=== PATIENT | female | born 1970 | race Caucasian/White ===

== ENCOUNTER 2016-06-19 12:59 | Emergency (ER) | payer MEDICAID ==
[~2016-06-19] VITALS: Ht 149.9 cm; Wt 104.6 kg
[~2016-06-19 12:59] MED LIST: FLUC150T17 PO; GLIP10TA95 PO; LISI20TA PO; METF500T PO
[2016-06-19 13:20] VITALS: Ht 149.9 cm; Wt 104.6 kg
[2016-06-19] MEDS ORDERED: SOD CHLORIDE 0.9% 1,000 ML IV STA (16:57)
[2016-06-19] MEDS ORDERED: KETOROLAC 30 MG INJ IV STA (16:57)
[2016-06-19 17:25] LABS: ADD SCAN DIFF NO
[2016-06-19 17:27] LABS: BASOPHILS % 0.3 % (0.0-2.0); EOSINOPHILS # 0.1 10^3/ul (0.0-0.5); EOSINOPHILS % 1.1 % (0.0-7.0); HEMATOCRIT 42.8 % (37.0-47.0); LYMPHOCYTES # 4.1 10^3/ul (0.8-2.9); LYMPHOCYTES % 34.3 % (15.0-51.0); MEAN CORPUSCULAR HEMOGLOBIN 28.1 pg (29.0-33.0); MEAN CORPUSCULAR HGB CONC 32.7 g/dl (32.0-37.0); MEAN CORPUSCULAR VOLUME 85.9 fl (82.0-101.0); MEAN PLATELET VOLUME 10.9 fl (7.4-10.4); MONOCYTE # 0.7 10^3/ul (0.3-0.9); MONOCYTES % 5.7 % (0.0-11.0); NEUTROPHIL # 6.9 10^3/ul (1.6-7.5); NEUTROPHILS % 58.3 % (39.0-77.0); PLATELET COUNT 287 10^3/UL (140-415); RED BLOOD COUNT 4.98 10^6/ul (4.20-5.40); RED CELL DISTRIBUTION WIDTH 13.6 % (11.5-14.5); WHITE BLOOD COUNT 11.8 10^3/ul (4.8-10.8)
[2016-06-19 17:30] LABS: ADD UMIC YES; URINE BILIRUBIN (Dip) NEGATIVE (NEGATIVE); URINE BLOOD (Dip) NEGATIVE (NEGATIVE); URINE COLOR YELLOW (YELLOW); URINE KETONES (Dip) NEGATIVE (NEGATIVE); URINE LEUKOCYTE ESTERASE (Dip) NEGATIVE (NEGATIVE); URINE NITRITE (Dip) NEGATIVE (NEGATIVE); URINE TOTAL PROTEIN (Dip) 1+ (NEGATIVE); URINE UROBILINOGEN (Dip) 0.2 E.U./dL (0.1-1.0)
[2016-06-19 17:36] LABS: ALBUMIN 4.1 g/dl (3.3-4.9)
[2016-06-19 17:37] LABS: POTASSIUM 4.1 mmol/L (3.5-5.1)
[2016-06-19 17:39] LABS: BILIRUBIN,INDIRECT 0.1 mg/dl (0-1.1); BILIRUBIN,TOTAL 0.1 mg/dl (0.2-1.3); CREATININE 0.44 mg/dl (0.44-1.00)
[2016-06-19 17:40] LABS: ALBUMIN/GLOBULIN RATIO 1.1; CALCIUM 9.5 mg/dl (8.4-10.2); TOTAL PROTEIN 7.8 g/dl (6.1-8.1)
[2016-06-19 17:45] LABS: BACTERIA,URINE MANY; SQUAMOUS EPITHELIAL CELL,UR MANY; URINE RBCS NONE SEEN /HPF (0)
[2016-06-19] MEDS ORDERED: SOD CHLORIDE 0.9% 100 ML ONE (18:08)
[2016-06-19] MEDS ORDERED: IOHEXOL 300MG/ML 150 ML BTL ONE (18:08)
--- NOTE | 2016-06-19 19:26 | RADRPT ---
PROCEDURE: CT Abdomen and Pelvis with contrast. CLINICAL INDICATION: Abdomen and pelvis pain. TECHNIQUE: CT scan of the abdomen and pelvis with contrast was performed. The patient was scanned following the uncomplicated intravenous administration of 100 cc of Omnipaque-300. Coronal and sag ittal reformatted images were obtained from the axial source images. Images were reviewed on a high- resolution PACS workstation. Total exam DLP is 952.19 mGy-cm. CTDIvol is 16.62 mGy. One or more o f the following dose reduction techniques were used: Automated exposure control, adjustment of the m A and/or kV according to patient size, use of iterative reconstruction technique. COMPARISON: 05/24/2008. FINDINGS: The lung bases are normal. There is no pleural effusion. The liver is mildly enlarged and diffusely decreased attenuation consistent with fatty metamorphosis . There is no focal hepatic lesion. The gallbladder is surgically absent with clips noted in the gallbladder bed. The bile ducts are no rmal. The spleen is normal in size. There is no focal splenic lesion. Both adrenals are normal with no enlargement or mass. The pancreas is unremarkable with no mass or evidence of pancreatitis. Both kidneys demonstrate normal contrast enhancement. There is no renal mass or hydronephrosis. The abdominal aorta is not dilated. There is no retroperitoneal lymphadenopathy or mass. There is no pelvic lymphadenopathy or mass. The bladder and distal ureters are normal. The appendix is well seen and appears normal. The bowel is unremarkable. There is a midline abdominal wall hernia superior to the umbilicus conta ining only omental fat. There is no herniated bowel. There is no free fluid or free gas. There are degenerative changes of the spine. There is no fracture or lytic lesion. There is flowin g ossification along the anterolateral aspect of 6 contiguous lower thoracic vertebral bodies, with preservation of disk height consistent with diffuse idiopathic skeletal hyperostosis (DISH). IMPRESSION: 1. Mild hepatomegaly. 2. Fatty metamorphosis of the liver. 3. Status post cholecystectomy. 4. Normal appendix. 5. Midline anterior abdominal wall hernia superior to the pelvis containing only omental fat with n o herniated bowel. 6. Degenerative changes of the spine. 7. Diffuse idiopathic skeletal hyperostosis. 8. Otherwise unremarkable study. RPTAT: QQ .Mina Sky MD, MD Date Time Electronically viewed and signed by .Mina Sky MD, on 06/19/2016 19:26 .R/
[2016-06-19] MEDS ORDERED: IBUP-1542 PO (19:44)
[2016-06-19] MEDS ORDERED: HYDR-906 PO (19:44)
--- NOTE | 2016-06-19 19:53 | ERD ---
ER Documentation Chief Complaint Date/Time DATE: 06/19/16 TIME: 19:49 Chief Complaint Back pain x 3 days, no injury reported. HPI This is a 45-year-old female presents to the ER with lower back pain for the last 3 days. Back pain is located in the left side and radiates down her left leg. He states that pain is constant rate as 8 out of 10. Patient denies any numbness or tingling in her left leg. She denies any trauma. She denies any urinary frequency or dysuria. She denies hematuria. Patient denies any abdominal pain. Denies any fevers or chills. She denies any urine or bowel incontinence. She denies any saddle like anesthesia ROS All systems reviewed and are negative except as per history of present illness. Medications Home Meds Active Scripts Hydrocodone/Acetaminophen ([place] 5-325 Tablet) 1 Each Tablet, 1 TAB PO Q6H Y for PAIN, #7 TAB Prov:[place] 06/19/16 Ibuprofen* (Motrin*) 600 Mg Tab, 600 MG PO Q6, #30 TAB Prov:[place] 06/19/16 Fluconazole* (Diflucan*) 150 Mg Tablet, 150 MG PO ONCE, #1 TAB take in 3 days if your symptoms of yeast infection have not improved Prov:ALEXANDRIA TAYLOR PA-C 12/19/15 Reported Medications Lisinopril* (Prinivil*) 20 Mg Tablet, 20 MG PO DAILY 03/30/13 Metformin Hcl (Glucophage) 500 Mg Tablet, 1000 MG PO BID 03/30/13 Glipizide* (Glucotrol*) 10 Mg Tablet, 10 MG PO DAILY 03/30/13 Allergies Allergies: Coded Allergies: No Known Allergy (Verified Allergy, Mild, 05/23/08) PMhx/Soc History of Surgery: Yes (YVONNE, CX, RIGHT ARMPIT CYST REMOVAL X2) Anesthesia Reaction: No Hx Neurological Disorder: No Hx Respiratory Disorders: No Hx Cardiac Disorders: No Hx Psychiatric Problems: No Hx Miscellaneous Medical Probl: Yes (DM AND HTN. ) Hx Alcohol Use: No Hx Substance Use: No Hx Tobacco Use: No Smoking Status: Never smoker Physical Exam Vitals Vital Signs Date Time Temp Pulse Resp B/P Pulse Ox O2 Delivery O2 Flow Rate FiO2 06/19/16 13:20 97.7 72 18 161/76 100 Physical Exam GENERAL: The patient is well developed and appropriate for usual state of health , in no apparent distress. CHEST: Clear to auscultation bilaterally. There are no rales, wheezes or rhonchi. HEART: Regular rate and rhythm. No murmurs, clicks, rubs or gallops. ABDOMEN: Soft, nontender and nondistended. No rebound or guarding. No gross peritonitis. No gross organomegaly or masses. No Funez sign or McBurney point tenderness. No pulsatile abdominal mass. BACK: No midline or flank tenderness. TTP paraspinal muscles. Negative leg raise test. No step- offs. EXTREMITIES: Full range of motion. Grossly neurovascularly intact. NEURO: Alert and oriented. Result Diagram: 06/19/16 1718 06/19/16 1718 Results 24 hrs Laboratory Tests Test 06/19/16 17:15 06/19/16 17:18 Urine Bacteria MANY Urine Bilirubin NEGATIVE Urine Clarity CLOUDY Urine Color YELLOW Urine Glucose 0.5%% Urine Hemoglobin NEGATIVE Urine Ketones NEGATIVE Urine Leukocyte Esterase NEGATIVE Urine Microscopic RBC NONE SEEN/HPF Urine Microscopic WBC NONE SEEN/HPF Urine Nitrite NEGATIVE Urine Specific [place]ck[place] 1.025 Urine Squamous Epithelial Cells MANY Urine Total Protein 1+ Urine Urobilinogen 0.2 E.U./dL Urine pH 6.0 Alanine Aminotransferase (ALT/SGPT) 25IU/L Albumin 4.1g/dl Albumin/Globulin Ratio 1.10 Alkaline Phosphatase 98IU/L Anion Gap 15 Aspartate Amino Transf (AST/SGOT) 16IU/L Basophils # 0.010^3/ul Basophils % 0.3% Blood Urea Nitrogen 10mg/dl Calcium Level 9.5mg/dl Carbon Dioxide Level 31mmol/L Chloride Level 96mmol/L Creatinine 0.44mg/dl Direct Bilirubin 0.00mg/dl Eosinophils # 0.110^3/ul Eosinophils % 1.1% Globulin 3.70g/dl Glucose Level 221mg/dl Hematocrit 42.8% Hemoglobin 14.0g/dl Indirect Bilirubin 0.1mg/dl Lipase 53U/L Lymphocytes # 4.110^3/ul Lymphocytes % 34.3% Mean Corpuscular Hemoglobin 28.1pg Mean Corpuscular Hemoglobin Concent 32.7g/dl Mean Corpuscular Volume 85.9fl Mean Platelet Volume 10.9fl Monocytes # 0.710^3/ul Monocytes % 5.7% Neutrophils # 6.910^3/ul Neutrophils % 58.3% Nucleated Red Blood Cells # 0.010^3/ul Nucleated Red Blood Cells % 0.0/100WBC Platelet Count 43630^3/UL Potassium Level 4.1mmol/L Red Blood Count 4.9810^6/ul Red Cell Distribution Width 13.6% Sodium Level 138mmol/L Total Bilirubin 0.1mg/dl Total Protein 7.8g/dl White Blood Count 11.810^3/ul Current Medications Medications (Trade) Dose Ordered Sig/Elvi Route PRN Reason Start Time Stop Time Status Last Admin Dose Admin Sodium Chloride (NS) 1,000 ml @ 1,000 mls/hr Q1H STAT IV 06/19/16 16:57 06/19/16 17:56 DC 06/19/16 17:20 Ketorolac Tromethamine (Toradol) 30 mg ONCE STAT IV 06/19/16 16:57 06/19/16 16:58 DC 06/19/16 17:21 IV Flush 10 ml 10 ml STK-MED ONCE .ROUTE 06/19/16 18:08 06/19/16 18:09 DC 06/19/16 18:22 Sodium Chloride (NS) 100 ml @ ud STK-MED ONCE .ROUTE 06/19/16 18:08 06/19/16 18:09 DC 06/19/16 18:22 Iohexol (Omnipaque 300mg/ ml) 150 ml STK-MED ONCE .ROUTE 06/19/16 18:08 06/19/16 18:09 DC 06/19/16 18:22 Procedures/MDM Differential Diagnosis includes but is not limited to back strain, vertebral fracture, epidural abscess, cauda equina, herniated disc, AAA rupture, kidney stones, UTI, pyelonephritis. This is a 45-year-old female presents to the ER with left-sided back pain. This is likely musculoskeletal possibly sciatica, radiating down her left leg. Patient is neurovascularly intact and has normal range of motion of her lower extremities. Kidney stones, UTI or pyelonephritis. Patient is afebrile and well-appearing. I doubt infectious etiology. Patient will be sent home with [place] and ibuprofen. She is to follow -up with her primary care doctor within 1-2 days and return to ER sooner if symptoms worsen. Medical decision making was discussed with patient she understands and agrees with plan. Departure Diagnosis: Primary Impression: Back pain Condition: Stable Patient Instructions: Back Pain W/ Sciatica Additional Instructions: Llame al doctor MAANA y farshad carmen EUGENIA PARA DENTRO DE 1-2 BELTRAN.Dgale a la secretaria que nosotros le instruimos hacer esta eugenia.Avise o llame si swanson condicin se empeora antes de la eugenia. Regresa aqui si peor o no mejor. [place] Jun 19, 2016 19:53
[2016-06-19 20:25] VITALS: BP 162/70; PULSE 67; RESP 17; TEMP 98
== END 2016-06-19 20:25 | disposition home or self-care (01) ==
LOC: FTE 12:59
DX: M54.5 Low back pain (principal); I10 Essential (primary) hypertension; E11.9 Type 2 diabetes mellitus without complications; R10.2 Pelvic and perineal pain; Z79.84 Long term (current) use of oral hypoglycemic drugs
CPT/HCPCS: 36415; 74177; 80053; 81001; 83690; 85025; 96374; J1885; J7030; Q9967; Z7502; Z7610; 81003